=== PATIENT | male | born 1940 | race African-American/Black ===

== ENCOUNTER 2020-06-17 15:09 | Inpatient (IN) | payer MEDICARE, OTHER ==
[~2020-06-17] VITALS: Ht 188 cm; Wt 96.8 kg
[2020-06-17 16:33] LABS: Basophils # (auto) 0 10 ^3/uL (0-0.2); Eosinophils # (auto) 0.1 10 ^3/uL (0-0.8); Monocytes # (auto) 0.6 10 ^3/uL (0-1.3); Monocytes % (auto) 15.7 % (0.0-12.0); Neutrophils # (auto) 2.3 10 ^3/uL (1.6-8.6)
[2020-06-17 16:34] LABS: Basophils % (auto) 0.9 % (0.0-2.0); Eosinophils % (auto) 3.3 % (0.0-7.0); Hematocrit 25.8 % (41.0-53.0); Lymphocytes # (auto) 0.7 10 ^3/uL (0.4-5.4); Lymphocytes % (auto) 18.9 % (10.0-50.0); Mean Corpuscular Hemoglobin 22.7 pg (28.0-32.0); Mean Corpuscular Volume 73.3 fL (80.0-100.0); Neutrophils % (auto) 61.2 % (37.0-80.0); Nucleated Red Blood Cells % 0.1 %; Platelet Count (auto) 166 10^3/uL (140-450); Red Blood Cells 3.53 10^6/uL (4.5-5.90); White Blood Cell 3.8 10^3/uL (4.4-10.8)
[2020-06-17 16:48] LABS: Albumin 2.5 g/dL (3.4-5.0); Calcium 8.5 mg/dL (8.5-10.1); Potassium 4.4 mmol/L (3.5-5.1)
[2020-06-17 16:52] LABS: BUN/Creatinine Ratio 20.6; Bilirubin, Total 0.9 mg/dL (0.2-1.0); Total Protein 6.4 g/dL (6.4-8.2)
[2020-06-17 19:59] LABS: Urine Bacteria NONE SEEN /hpf (None Seen); Urine Blood 2+ /uL (Negative); Urine Specific Gravity 1.018 (1.001-1.035); Urine WBC 2 /hpf (0 - 3)
[2020-06-17] MEDS ORDERED: FUROSEMIDE 40 MG/4 ML VIAL IV ONE (21:45)
[2020-06-17] MEDS ORDERED: NITROGLYCERIN 0.4 MG SL TAB SL PRN (22:30)
[2020-06-17] MEDS ORDERED: ACETAMINOPHEN 325 MG TAB PO PRN (22:30)
[2020-06-17] MEDS ORDERED: ATORVASTATIN 20 MG TAB PO ONE (22:30)
[2020-06-17] MEDS ORDERED: MORPHINE SULFATE 4 MG/ML SYR/VIAL IV PRN (22:30)
[2020-06-17] MEDS ORDERED: SODIUM CHLORIDE 0.9% 1,000 ML IV SCH (22:30)
[2020-06-17] MEDS ORDERED: ONDANSETRON HCL 4 MG/2 ML VIAL IV PRN (22:30)
[2020-06-17] MEDS ORDERED: MORPHINE SULF INJ 2 MG/ML SYRINGE 1ML IV PRN (22:30)
[2020-06-17] MEDS: ENOXAPARIN SOD 100 MG/1 ML SYRINGE SC SCH (22:58)
[2020-06-18 01:10] VITALS: BP 134/81
[2020-06-18 05:00] VITALS: BP 128/80
[2020-06-18 07:52] LABS: Basophils # (auto) 0 10 ^3/uL (0-0.2); Eosinophils # (auto) 0.1 10 ^3/uL (0-0.8); Hemoglobin 8.6 g/dL (13.5-17.5); Monocytes # (auto) 0.7 10 ^3/uL (0-1.3); Neutrophils # (auto) 2.9 10 ^3/uL (1.6-8.6); Platelet Count (auto) 189 10^3/uL (140-450); White Blood Cell 4.8 10^3/uL (4.4-10.8)
[2020-06-18 07:55] LABS: Basophils % (auto) 0.8 % (0.0-2.0); Eosinophils % (auto) 2.5 % (0.0-7.0); Hematocrit 27.8 % (41.0-53.0); Lymphocytes # (auto) 1.1 10 ^3/uL (0.4-5.4); Lymphocytes % (auto) 22.5 % (10.0-50.0); Mean Corpuscular Hemoglobin 22.4 pg (28.0-32.0); Mean Corpuscular Hgb Conc. 30.9 g/dL (32.0-36.0); Mean Corpuscular Volume 72.6 fL (80.0-100.0); Monocytes % (auto) 13.6 % (0.0-12.0); Neutrophils % (auto) 60.6 % (37.0-80.0); Red Blood Cells 3.83 10^6/uL (4.5-5.90); Red Cell Distribution Width 18.4 % (11.8-14.3)
[2020-06-18 08:00] VITALS: BP 138/89
[2020-06-18 08:10] LABS: Calcium 8.6 mg/dL (8.5-10.1)
[2020-06-18 08:18] LABS: BUN/Creatinine Ratio 18.7
[2020-06-18] MEDS: FUROSEMIDE 40 MG/4 ML VIAL IV SCH (09:52)
[2020-06-18] MEDS: ASPirin 81 mg TAB PO SCH (09:53)
[2020-06-18] MEDS: CLOPIDOGREL BISULFATE 75 MG TAB PO SCH (09:53)
[2020-06-18] MEDS: DOCUSATE SOD 100 MG CAP PO SCH (09:54)
[2020-06-18] MEDS: ENOXAPARIN SOD 100 MG/1 ML SYRINGE SC SCH (09:55)
[2020-06-18] MEDS ORDERED: LISINOPRIL 5 MG TAB PO SCH (10:00)
[2020-06-18 13:15] LABS: % Iron Saturation 4.7 % (20-55)
[2020-06-18 16:00] VITALS: BP 119/87
[2020-06-18 20:00] VITALS: BP 124/76
[2020-06-18] MEDS: ATORVASTATIN 20 MG TAB PO SCH (21:03)
[2020-06-19 05:00] VITALS: BP_SYST 124; BP_SYST 136; BP_DIAS 103; BP_DIAS 77
[2020-06-19 06:15] LABS: Basophils # (auto) 0.1 10 ^3/uL (0-0.2); Basophils % (auto) 1.2 % (0.0-2.0); Eosinophils # (auto) 0.1 10 ^3/uL (0-0.8); Eosinophils % (auto) 2.1 % (0.0-7.0); Hematocrit 27.5 % (41.0-53.0); Hemoglobin 8.5 g/dL (13.5-17.5); Lymphocytes # (auto) 0.6 10 ^3/uL (0.4-5.4); Mean Corpuscular Hemoglobin 22.4 pg (28.0-32.0); Mean Corpuscular Volume 72.4 fL (80.0-100.0); Monocytes # (auto) 0.7 10 ^3/uL (0-1.3); Monocytes % (auto) 16.4 % (0.0-12.0); Neutrophils # (auto) 2.9 10 ^3/uL (1.6-8.6); Neutrophils % (auto) 66.3 % (37.0-80.0); Nucleated Red Blood Cells % 0.2 %; Platelet Count (auto) 179 10^3/uL (140-450); Red Cell Distribution Width 18.4 % (11.8-14.3); White Blood Cell 4.4 10^3/uL (4.4-10.8)
[2020-06-19 06:26] LABS: INR 1.21 (0.9-1.15); Partial Thromboplastin Time 30.3 sec (23.0-31.2)
[2020-06-19 06:40] LABS: Potassium 3.9 mmol/L (3.5-5.1)
[2020-06-19 06:50] LABS: BUN/Creatinine Ratio 20.2; Calcium 8.6 mg/dL (8.5-10.1)
[2020-06-19 08:31] VITALS: BP 148/76
[2020-06-19] MEDS: DOCUSATE SOD 100 MG CAP PO SCH (09:24)
[2020-06-19] MEDS: ASPirin 81 mg TAB PO SCH (09:24)
[2020-06-19] MEDS: CLOPIDOGREL BISULFATE 75 MG TAB PO SCH (09:24)
[2020-06-19] MEDS: FUROSEMIDE 40 MG/4 ML VIAL IV SCH (09:24)
[2020-06-19] MEDS: LISINOPRIL 5 MG TAB PO SCH (09:25)
[2020-06-19] MEDS ORDERED: DULO20CA PO (11:06)
[2020-06-19] MEDS ORDERED: FERROUS SULFATE 325 MG TAB PO ONE (12:15)
[2020-06-19 12:52] VITALS: BP 137/89
[2020-06-19 16:34] VITALS: BP 132/79
[2020-06-19] MEDS: FERROUS SULFATE 325 MG TAB PO SCH (18:00)
[2020-06-19] MEDS: ATORVASTATIN 20 MG TAB PO SCH (21:03)
[2020-06-20 05:23] VITALS: BP 127/78
[2020-06-20 08:00] VITALS: BP 128/82
[2020-06-20] MEDS: ASPirin 81 mg TAB PO SCH (10:14)
[2020-06-20] MEDS: FUROSEMIDE 40 MG/4 ML VIAL IV SCH (10:14)
[2020-06-20] MEDS: CLOPIDOGREL BISULFATE 75 MG TAB PO SCH (10:14)
[2020-06-20] MEDS: DOCUSATE SOD 100 MG CAP PO SCH (10:14)
[2020-06-20] MEDS: FERROUS SULFATE 325 MG TAB PO SCH ×2 (10:14→18:00)
[2020-06-20] MEDS: LISINOPRIL 5 MG TAB PO SCH (10:15)
[2020-06-20 16:16] VITALS: BP 131/53
[2020-06-20 17:38] VITALS: BP 131/53
== END 2020-06-20 18:58 | disposition home or self-care (01) | DRG 280 ==
LOC: ER 15:11 → TELE 15:12 → TELE-EAST 23:42
PROVIDERS: ADMIT Hospitalist; ATTEND Internal Medicine
DX: I21.4 Non-ST elevation (NSTEMI) myocardial infarction (principal); I50.43 Acute on chronic combined systolic (congestive) and diastolic (congestive) heart failure; I48.20 Chronic atrial fibrillation, unspecified; I11.0 Hypertensive heart disease with heart failure; N50.819 Testicular pain, unspecified; R09.02 Hypoxemia; R31.9 Hematuria, unspecified; N50.82 Scrotal pain; D50.9 Iron deficiency anemia, unspecified; E66.9 Obesity, unspecified; I25.10 Atherosclerotic heart disease of native coronary artery without angina pectoris; N50.89 Other specified disorders of the male genital organs; I08.1 Rheumatic disorders of both mitral and tricuspid valves; Z20.822 Contact with and (suspected) exposure to COVID-19; Z91.14 Patient's other noncompliance with medication regimen; Z82.3 Family history of stroke; Z95.0 Presence of cardiac pacemaker; Z95.1 Presence of aortocoronary bypass graft; Z79.899 Other long term (current) drug therapy; Z79.891 Long term (current) use of opiate analgesic; Z79.01 Long term (current) use of anticoagulants; Z84.1 Family history of disorders of kidney and ureter; Z84.89 Family history of other specified conditions
CPT/HCPCS: 36415; 71045; 76870; 80048; 80053; 80061; 81001; 83540; 83550; 83880; 84484; 85025; 85610; 85730; 86850; 86900; 86901; 87426; 93005; 93306; 96361; 96374; G0378

== ENCOUNTER 2020-06-22 17:40 | Emergency (ER) | payer MEDICARE, OTHER ==
[~2020-06-22] VITALS: Ht 188 cm; Wt 99.8 kg
[~2020-06-22 17:40] MED LIST: DULO20CA PO
[2020-06-22 23:00] VITALS: BP 127/72
[2020-06-22 23:49] LABS: Basophils # (auto) 0 10 ^3/uL (0-0.2); Basophils % (auto) 0.9 % (0.0-2.0); Eosinophils # (auto) 0.2 10 ^3/uL (0-0.8); Hemoglobin 8.1 g/dL (13.5-17.5); Red Cell Distribution Width 18.4 % (11.8-14.3); White Blood Cell 4.9 10^3/uL (4.4-10.8)
[2020-06-22 23:51] LABS: Albumin 2.6 g/dL (3.4-5.0); Calcium 8.2 mg/dL (8.5-10.1); Eosinophils % (auto) 3.3 % (0.0-7.0); Hematocrit 26.6 % (41.0-53.0); Lymphocytes # (auto) 0.6 10 ^3/uL (0.4-5.4); Lymphocytes % (auto) 13.1 % (10.0-50.0); Mean Corpuscular Hemoglobin 22.5 pg (28.0-32.0); Mean Corpuscular Hgb Conc. 30.5 g/dL (32.0-36.0); Mean Corpuscular Volume 73.6 fL (80.0-100.0); Monocytes # (auto) 0.7 10 ^3/uL (0-1.3); Neutrophils # (auto) 3.3 10 ^3/uL (1.6-8.6); Neutrophils % (auto) 68.7 % (37.0-80.0); Nucleated Red Blood Cells % 0.1 %; Potassium 4.3 mmol/L (3.5-5.1); Red Blood Cells 3.61 10^6/uL (4.5-5.90)
[2020-06-22 23:54] LABS: Bilirubin, Total 0.8 mg/dL (0.2-1.0); Total Protein 6.2 g/dL (6.4-8.2)
[2020-06-23 00:23] LABS: INR 1.1 (0.9-1.15); Partial Thromboplastin Time 26.3 sec (23.0-31.2)
== END 2020-06-22 22:59 | disposition home or self-care (01) ==
LOC: ER 17:40
DX: S00.03XA Contusion of scalp, initial encounter (principal); J18.9 Pneumonia, unspecified organism; I11.0 Hypertensive heart disease with heart failure; I50.9 Heart failure, unspecified; Z20.822 Contact with and (suspected) exposure to COVID-19; W18.39XA Other fall on same level, initial encounter; Y93.89 Activity, other specified; Y92.89 Other specified places as the place of occurrence of the external cause; Y99.8 Other external cause status
CPT/HCPCS: 36415; 70450; 71250; 73200; 80053; 83880; 84484; 85025; 85610; 85730; 93005

== ENCOUNTER 2020-09-07 10:48 | Inpatient (IN) | payer OTHER, MEDICARE ==
[~2020-09-07] VITALS: Ht 188 cm; Wt 98.8 kg
[2020-09-07] MEDS ORDERED: FUROSEMIDE 40 MG/4 ML VIAL IV ONE (11:30)
[2020-09-07 11:56] LABS: Eosinophils # (auto) 0.1 10 ^3/uL (0-0.8); Hemoglobin 9.5 g/dL (13.5-17.5)
[2020-09-07 11:58] LABS: Basophils # (auto) 0.1 10 ^3/uL (0-0.2); Basophils % (auto) 2.8 % (0.0-2.0); Hematocrit 30.9 % (41.0-53.0); Lymphocytes # (auto) 0.5 10 ^3/uL (0.4-5.4); Lymphocytes % (auto) 11.5 % (10.0-50.0); Mean Corpuscular Hemoglobin 23.9 pg (28.0-32.0); Mean Corpuscular Hgb Conc. 30.8 g/dL (32.0-36.0); Mean Corpuscular Volume 77.8 fL (80.0-100.0); Monocytes # (auto) 0.5 10 ^3/uL (0-1.3); Monocytes % (auto) 12.1 % (0.0-12.0); Neutrophils # (auto) 2.8 10 ^3/uL (1.6-8.6); Neutrophils % (auto) 70.6 % (37.0-80.0); Nucleated Red Blood Cells % 0.3 %; Platelet Count (auto) 214 10^3/uL (140-450); Red Blood Cells 3.97 10^6/uL (4.5-5.90); Red Cell Distribution Width 23.6 % (11.8-14.3)
[2020-09-07 12:16] LABS: INR 1.09 (0.9-1.15); Partial Thromboplastin Time 26.5 sec (23.0-31.2); Potassium 4.2 mmol/L (3.5-5.1)
[2020-09-07 12:26] LABS: Albumin 2.2 g/dL (3.4-5.0); BUN/Creatinine Ratio 16.5; Bilirubin, Total 0.7 mg/dL (0.2-1.0); Magnesium 2.5 mg/dL (1.6-2.6); Total Protein 5.4 g/dL (6.4-8.2)
[2020-09-07 12:33] LABS: Urine WBC None Seen /hpf (0 - 3)
[2020-09-07 12:46] LABS: Urine Bacteria NONE SEEN /hpf (None Seen); Urine Blood Negative /uL (Negative); Urine Specific Gravity 1.011 (1.001-1.035)
[2020-09-07] MEDS ORDERED: ACETAMINOPHEN 500 MG TAB PO PRN (15:00)
[2020-09-07] MEDS ORDERED: NITROGLYCERIN 0.4 MG SL TAB SL PRN (15:00)
[2020-09-07] MEDS ORDERED: ONDANSETRON HCL 4 MG/2 ML VIAL IV PRN (15:00)
[2020-09-07] MEDS ORDERED: DOCUSATE CALCIUM 240 MG CAP PO PRN (15:00)
[2020-09-07] MEDS ORDERED: ALBUTEROL SULF 2.5 MG/0.5ML(0.5%) NEB SOLN NEB PRN (15:00)
[2020-09-07] MEDS ORDERED: hydrALAZINE HCL 20 MG/ML VL IV PRN (15:00)
[2020-09-07] MEDS ORDERED: MORPHINE SULF INJ 2 MG/ML SYRINGE 1ML IV PRN ×2 (15:00)
[2020-09-07 15:21] VITALS: BP 118/57
[2020-09-07 16:09] LABS: Hemoglobin 9.8 g/dL (13.5-17.5)
[2020-09-07 16:12] LABS: Hematocrit 32.3 % (41.0-53.0)
[2020-09-07] MEDS ORDERED: DOBUTamine 1000MCG/ML 250 ML IV SCH (18:45)
[2020-09-07] MEDS: DOBUTamine 1000MCG/ML 250 ML IV SCH (21:30)
[2020-09-07 21:39] VITALS: BP 116/65
[2020-09-07 21:58] LABS: Hematocrit 30.4 % (41.0-53.0); Hemoglobin 9.5 g/dL (13.5-17.5)
[2020-09-07] MEDS: LORazepam 0.5 MG TAB PO PRN (23:10)
[2020-09-08 00:03] VITALS: BP 116/65
[2020-09-08 04:07] LABS: Hematocrit 28.6 % (41.0-53.0); Hemoglobin 8.9 g/dL (13.5-17.5)
[2020-09-08 05:00] VITALS: BP 123/70
[2020-09-08 06:18] LABS: Basophils # (auto) 0 10 ^3/uL (0-0.2); Eosinophils # (auto) 0.2 10 ^3/uL (0-0.8); Hematocrit 27.6 % (41.0-53.0); Hemoglobin 8.6 g/dL (13.5-17.5); Monocytes # (auto) 0.8 10 ^3/uL (0-1.3); Neutrophils # (auto) 2.8 10 ^3/uL (1.6-8.6); Platelet Count (auto) 187 10^3/uL (140-450); White Blood Cell 4.6 10^3/uL (4.4-10.8)
[2020-09-08 06:20] LABS: Basophils % (auto) 0.5 % (0.0-2.0); Eosinophils % (auto) 4.2 % (0.0-7.0); Lymphocytes # (auto) 0.8 10 ^3/uL (0.4-5.4); Lymphocytes % (auto) 16.7 % (10.0-50.0); Mean Corpuscular Hemoglobin 24.1 pg (28.0-32.0); Mean Corpuscular Hgb Conc. 31.1 g/dL (32.0-36.0); Mean Corpuscular Volume 77.3 fL (80.0-100.0); Monocytes % (auto) 16.9 % (0.0-12.0); Neutrophils % (auto) 61.7 % (37.0-80.0); Nucleated Red Blood Cells % 0.1 %; Red Blood Cells 3.57 10^6/uL (4.5-5.90)
[2020-09-08 06:34] LABS: Red Cell Distribution Width 23.7 % (11.8-14.3)
[2020-09-08 06:41] LABS: Calcium 7.6 mg/dL (8.5-10.1); Potassium 4.1 mmol/L (3.5-5.1)
[2020-09-08 06:47] LABS: BUN/Creatinine Ratio 17.4; Bilirubin, Total 0.5 mg/dL (0.2-1.0)
[2020-09-08 07:51] VITALS: BP 108/70
[2020-09-08] MEDS ORDERED: DOXYCYCLINE 100 MG TAB/CAP PO ONE (10:15)
[2020-09-08 10:17] LABS: Hematocrit 28.7 % (41.0-53.0)
[2020-09-08] MEDS: DIGOXIN 0.125 MG TAB PO SCH (10:34)
[2020-09-08] MEDS: DULoxetine HCL 30 MG CAP PO SCH (10:34)
[2020-09-08] MEDS: PANTOPRAZOLE 40 MG TAB PO SCH (10:34)
[2020-09-08] MEDS: ENOXAPARIN SOD 40 MG/0.4 ML SYRINGE SC SCH (10:35)
[2020-09-08] MEDS: AMIODARONE HCL 200 MG TAB PO SCH (10:35)
[2020-09-08] MEDS ORDERED: FUROSEMIDE 40 MG TAB PO ONE (11:45)
[2020-09-08] MEDS: guaiFENesin-CODEINE Liq 5 ML UD PO SCH ×3 (12:05→21:37)
[2020-09-08 12:30] VITALS: BP 124/77
[2020-09-08] MEDS: Ensure HIGH Protein Chocolate 8oz Bottle PO SCH ×2 (13:30→18:54)
[2020-09-08] MEDS: DOBUTamine 1000MCG/ML 250 ML IV SCH (14:15)
[2020-09-08 15:15] LABS: Hematocrit 28.6 % (41.0-53.0); Hemoglobin 8.9 g/dL (13.5-17.5)
[2020-09-08 16:47] VITALS: BP 118/53
[2020-09-08 21:14] VITALS: BP 115/74
[2020-09-08] MEDS: DOXYCYCLINE 100 MG TAB/CAP PO SCH (21:37)
[2020-09-08] MEDS: LORazepam 0.5 MG TAB PO PRN (21:38)
[2020-09-08 21:47] LABS: Hematocrit 28.9 % (41.0-53.0)
[2020-09-09] MEDS: DOBUTamine 1000MCG/ML 250 ML IV SCH ×2 (04:06→13:44)
[2020-09-09 04:50] VITALS: BP 110/72
[2020-09-09] MEDS: guaiFENesin-CODEINE Liq 5 ML UD PO SCH ×2 (06:24→12:25)
[2020-09-09 06:26] LABS: Basophils # (auto) 0 10 ^3/uL (0-0.2); Eosinophils # (auto) 0.2 10 ^3/uL (0-0.8); Monocytes # (auto) 0.7 10 ^3/uL (0-1.3); Neutrophils # (auto) 3.3 10 ^3/uL (1.6-8.6); Nucleated Red Blood Cells % 0.1 %
[2020-09-09 06:34] LABS: Basophils % (auto) 0.4 % (0.0-2.0); Hematocrit 26.8 % (41.0-53.0); Hemoglobin 8.4 g/dL (13.5-17.5); Lymphocytes # (auto) 0.7 10 ^3/uL (0.4-5.4); Lymphocytes % (auto) 13.7 % (10.0-50.0); Mean Corpuscular Hemoglobin 24.3 pg (28.0-32.0); Mean Corpuscular Hgb Conc. 31.5 g/dL (32.0-36.0); Mean Corpuscular Volume 77.1 fL (80.0-100.0); Monocytes % (auto) 13.8 % (0.0-12.0); Neutrophils % (auto) 68.1 % (37.0-80.0); Platelet Count (auto) 181 10^3/uL (140-450); Red Blood Cells 3.48 10^6/uL (4.5-5.90); White Blood Cell 4.8 10^3/uL (4.4-10.8)
[2020-09-09 06:37] LABS: Red Cell Distribution Width 22.8 % (11.8-14.3)
[2020-09-09 06:54] LABS: Potassium 4.4 mmol/L (3.5-5.1)
[2020-09-09 07:09] LABS: Albumin 2.1 g/dL (3.4-5.0); BUN/Creatinine Ratio 18.1; Bilirubin, Total 0.6 mg/dL (0.2-1.0); Calcium 7.6 mg/dL (8.5-10.1); Total Protein 5.2 g/dL (6.4-8.2)
[2020-09-09 09:00] VITALS: BP 116/65
[2020-09-09] MEDS: Ensure HIGH Protein Chocolate 8oz Bottle PO SCH ×2 (09:09→12:25)
[2020-09-09] MEDS: ENOXAPARIN SOD 40 MG/0.4 ML SYRINGE SC SCH (09:09)
[2020-09-09] MEDS: DIGOXIN 0.125 MG TAB PO SCH (09:10)
[2020-09-09] MEDS: PANTOPRAZOLE 40 MG TAB PO SCH (09:10)
[2020-09-09] MEDS: DULoxetine HCL 30 MG CAP PO SCH (09:11)
[2020-09-09] MEDS: DOXYCYCLINE 100 MG TAB/CAP PO SCH (09:11)
[2020-09-09] MEDS: AMIODARONE HCL 200 MG TAB PO SCH (09:11)
[2020-09-09] MEDS ORDERED: FUROSEMIDE 40 MG TAB PO SCH (10:00)
[2020-09-09 13:17] VITALS: BP 119/70
[2020-09-09 13:44] VITALS: BP 119/70
== END 2020-09-09 15:50 | disposition left against medical advice (07) | DRG 280 ==
LOC: EDBD 10:48 → ER 10:48 → TELE 14:59 → TELE-CENTR 20:50
PROVIDERS: ADMIT Family Medicine; ATTEND Family Medicine
DX: I13.0 Hypertensive heart and chronic kidney disease with heart failure and stage 1 through stage 4 chronic kidney disease, or unspecified chronic kidney disease (principal); I21.A1 Myocardial infarction type 2; I50.43 Acute on chronic combined systolic (congestive) and diastolic (congestive) heart failure; J96.01 Acute respiratory failure with hypoxia; J15.6 Pneumonia due to other Gram-negative bacteria; D68.59 Other primary thrombophilia; E44.0 Moderate protein-calorie malnutrition; E87.0 Hyperosmolality and hypernatremia; I48.20 Chronic atrial fibrillation, unspecified; Z53.29 Procedure and treatment not carried out because of patient's decision for other reasons; Z20.822 Contact with and (suspected) exposure to COVID-19; E78.5 Hyperlipidemia, unspecified; E83.51 Hypocalcemia; F43.10 Post-traumatic stress disorder, unspecified; I05.9 Rheumatic mitral valve disease, unspecified; I25.10 Atherosclerotic heart disease of native coronary artery without angina pectoris; I25.5 Ischemic cardiomyopathy; I27.21 Secondary pulmonary arterial hypertension; I49.5 Sick sinus syndrome; K80.20 Calculus of gallbladder without cholecystitis without obstruction; M10.9 Gout, unspecified; N18.2 Chronic kidney disease, stage 2 (mild); N50.89 Other specified disorders of the male genital organs; Z82.3 Family history of stroke; I25.2 Old myocardial infarction; Z83.3 Family history of diabetes mellitus; Z95.0 Presence of cardiac pacemaker; Z95.1 Presence of aortocoronary bypass graft; Z79.899 Other long term (current) drug therapy
CPT/HCPCS: 36415; 71045; 71250; 76870; 80053; 81001; 83735; 83880; 84443; 84484; 85014; 85018; 85025; 85610; 85730; 87070; 87205; 87426; 93005; 94660; 96365; 96375; 99291; G0378

== ENCOUNTER 2021-04-19 16:38 | Inpatient (IN) | payer MEDICARE ==
[~2021-04-19] VITALS: Ht 188 cm; Wt 97.0 kg
[2021-04-19] MEDS ORDERED: FUROSEMIDE 40 MG/4 ML VIAL IV ONE (17:00)
[2021-04-19 19:51] LABS: Basophils # (auto) 0 10 ^3/uL (0-0.2); Basophils % (auto) 0.8 % (0.0-2.0); Eosinophils # (auto) 0.1 10 ^3/uL (0-0.8); Hemoglobin 8.1 g/dL (13.5-17.5); Lymphocytes # (auto) 0.5 10 ^3/uL (0.4-5.4); Neutrophils # (auto) 3.8 10 ^3/uL (1.6-8.6)
[2021-04-19 19:53] LABS: Eosinophils % (auto) 2.7 % (0.0-7.0); Hematocrit 27.5 % (41.0-53.0); Lymphocytes % (auto) 8.9 % (10.0-50.0); Mean Corpuscular Hemoglobin 19.3 pg (28.0-32.0); Mean Corpuscular Hgb Conc. 29.7 g/dL (32.0-36.0); Mean Corpuscular Volume 65.2 fL (80.0-100.0); Monocytes # (auto) 0.7 10 ^3/uL (0-1.3); Neutrophils % (auto) 74.6 % (37.0-80.0); Nucleated Red Blood Cells % 0.2 %; Red Blood Cells 4.22 10^6/uL (4.5-5.90); Red Cell Distribution Width 24.2 % (11.8-14.3); White Blood Cell 5.1 10^3/uL (4.4-10.8)
[2021-04-19 20:06] LABS: INR 1.13 (0.9-1.15)
[2021-04-19 20:15] LABS: Albumin 2.2 g/dL (3.4-5.0); Potassium 4.4 mmol/L (3.5-5.1)
[2021-04-19 20:23] LABS: Bilirubin, Total 0.7 mg/dL (0.2-1.0)
[2021-04-19] MEDS ORDERED: ASPirin 325 MG TAB PO ONE (22:00)
[2021-04-19] MEDS ORDERED: ACETAMINOPHEN 325 MG TAB PO PRN (22:15)
[2021-04-19] MEDS ORDERED: DOCUSATE SOD 100 MG CAP PO PRN (22:15)
[2021-04-19] MEDS ORDERED: ONDANSETRON HCL 4 MG/2 ML VIAL IV PRN (22:15)
[2021-04-19 22:43] LABS: Urine Bacteria NONE SEEN /hpf (None Seen); Urine Blood Negative /uL (Negative); Urine Specific Gravity 1.016 (1.001-1.035); Urine WBC 14 /hpf (0 - 3)
[2021-04-19] MEDS ORDERED: NITROGLYCERIN 0.4 MG SL TAB SL PRN (23:45)
[2021-04-19] MEDS ORDERED: MORPHINE SULFATE INJECTION 2 MG/ML SYRG IV PRN (23:45)
[2021-04-20 00:40] VITALS: BP 112/72
[2021-04-20] MEDS: HYDROcodone-ACET 5/325MG TAB PO PRN (01:53)
[2021-04-20] MEDS: SODIUM CHLOR 0.9% PF (SALINE LOCK) 10ML VIAL/SYR IV SCH ×3 (05:11→21:48)
[2021-04-20 05:13] VITALS: BP 100/61
[2021-04-20 05:19] LABS: Eosinophils # (auto) 0.1 10 ^3/uL (0-0.8)
[2021-04-20 05:21] LABS: Basophils # (auto) 0 10 ^3/uL (0-0.2); Basophils % (auto) 0.4 % (0.0-2.0); Eosinophils % (auto) 2.9 % (0.0-7.0); Hematocrit 24.7 % (41.0-53.0); Hemoglobin 7.2 g/dL (13.5-17.5); Lymphocytes # (auto) 0.4 10 ^3/uL (0.4-5.4); Mean Corpuscular Hemoglobin 19.2 pg (28.0-32.0); Mean Corpuscular Hgb Conc. 29.2 g/dL (32.0-36.0); Mean Corpuscular Volume 65.8 fL (80.0-100.0); Monocytes # (auto) 0.6 10 ^3/uL (0-1.3); Monocytes % (auto) 12.4 % (0.0-12.0); Neutrophils # (auto) 3.8 10 ^3/uL (1.6-8.6); Neutrophils % (auto) 76.3 % (37.0-80.0); Nucleated Red Blood Cells % 0.2 %; Red Blood Cells 3.76 10^6/uL (4.5-5.90)
[2021-04-20 05:32] LABS: Cholesterol 122 mg/dL (< 200)
[2021-04-20 05:36] LABS: HDL Cholesterol 34 mg/dL (40-59); LDL Cholesterol 75 mg/dL (< 100); Triglycerides 60 mg/dL (< 150)
[2021-04-20 05:47] LABS: Red Cell Distribution Width 23.9 % (11.8-14.3)
[2021-04-20 09:00] VITALS: BP 99/66
[2021-04-20] MEDS: ASPirin 81 mg TAB PO SCH (09:51)
[2021-04-20] MEDS ORDERED: CARVEDILOL 12.5 MG TAB PO SCH (10:00)
[2021-04-20] MEDS ORDERED: FUROSEMIDE 40 MG/4 ML VIAL IV SCH (10:00)
[2021-04-20 13:00] VITALS: BP 101/64
[2021-04-20 17:00] VITALS: BP 101/61
[2021-04-20] MEDS: FUROSEMIDE 40 MG/4 ML VIAL IV SCH (18:11)
[2021-04-20] MEDS: CARVEDILOL 3.125 MG TAB PO SCH (21:23)
[2021-04-20] MEDS: ENOXAPARIN SOD 100 MG/1 ML SYRINGE SC SCH (21:24)
[2021-04-20] MEDS: SACUBITRIL-VALSARTAN 24mg/26mg TAB PO SCH (21:24)
[2021-04-20] MEDS: ATORVASTATIN 20 MG TAB PO SCH (21:24)
[2021-04-20 22:00] VITALS: BP 100/58
[2021-04-21] MEDS: ALBUTEROL SULF 2.5 MG/0.5ML(0.5%) NEB SOLN NEB PRN ×3 (01:46→22:39)
[2021-04-21] MEDS: HYDROcodone-ACET 5/325MG TAB PO PRN ×2 (03:41→11:52)
[2021-04-21 05:00] VITALS: BP 96/46
[2021-04-21 05:48] LABS: Basophils # (auto) 0 10 ^3/uL (0-0.2); Lymphocytes # (auto) 0.5 10 ^3/uL (0.4-5.4); Monocytes # (auto) 0.6 10 ^3/uL (0-1.3); Neutrophils # (auto) 3.5 10 ^3/uL (1.6-8.6); Nucleated Red Blood Cells % 0.1 %; White Blood Cell 4.9 10^3/uL (4.4-10.8)
[2021-04-21 05:52] LABS: Basophils % (auto) 0.7 % (0.0-2.0); Eosinophils # (auto) 0.3 10 ^3/uL (0-0.8); Eosinophils % (auto) 5.2 % (0.0-7.0); Hematocrit 24.3 % (41.0-53.0); Hemoglobin 7.2 g/dL (13.5-17.5); Lymphocytes % (auto) 9.5 % (10.0-50.0); Mean Corpuscular Hemoglobin 19.5 pg (28.0-32.0); Mean Corpuscular Hgb Conc. 29.8 g/dL (32.0-36.0); Mean Corpuscular Volume 65.5 fL (80.0-100.0); Monocytes % (auto) 11.7 % (0.0-12.0); Neutrophils % (auto) 72.9 % (37.0-80.0); Red Blood Cells 3.71 10^6/uL (4.5-5.90)
[2021-04-21 06:04] LABS: Red Cell Distribution Width 23.5 % (11.8-14.3)
[2021-04-21 06:07] LABS: Calcium 7.3 mg/dL (8.5-10.1); Magnesium 2.2 mg/dL (1.6-2.6); Potassium 4.1 mmol/L (3.5-5.1)
[2021-04-21 06:11] LABS: BUN/Creatinine Ratio 24.1
[2021-04-21] MEDS: FUROSEMIDE 40 MG/4 ML VIAL IV SCH ×2 (06:35→18:01)
[2021-04-21] MEDS: SODIUM CHLOR 0.9% PF (SALINE LOCK) 10ML VIAL/SYR IV SCH ×3 (06:36→22:15)
[2021-04-21 08:15] VITALS: BP 90/51
[2021-04-21 09:00] VITALS: BP 90/51
[2021-04-21] MEDS: CARVEDILOL 3.125 MG TAB PO SCH ×2 (10:00→22:00)
[2021-04-21] MEDS: DAPAGLIFLOZIN 5 MG TAB PO SCH (10:12)
[2021-04-21] MEDS: SACUBITRIL-VALSARTAN 24mg/26mg TAB PO SCH ×2 (10:12→22:18)
[2021-04-21] MEDS: ASPirin 81 mg TAB PO SCH (10:12)
[2021-04-21] MEDS: ENOXAPARIN SOD 100 MG/1 ML SYRINGE SC SCH ×2 (10:13→22:18)
[2021-04-21 13:00] VITALS: BP 98/53
[2021-04-21 17:00] VITALS: BP 91/64
[2021-04-21 22:00] VITALS: BP 100/54
[2021-04-21] MEDS: ATORVASTATIN 20 MG TAB PO SCH (22:18)
[2021-04-22 00:31] LABS: INR 1.11 (0.9-1.15); Partial Thromboplastin Time 26.7 sec (23.6-33.0)
[2021-04-22 05:00] VITALS: BP 104/69
[2021-04-22] MEDS: SODIUM CHLOR 0.9% PF (SALINE LOCK) 10ML VIAL/SYR IV SCH ×3 (05:47→23:16)
[2021-04-22] MEDS: FUROSEMIDE 40 MG/4 ML VIAL IV SCH ×2 (05:47→18:03)
[2021-04-22 06:11] LABS: Basophils # (auto) 0 10 ^3/uL (0-0.2); Lymphocytes # (auto) 0.5 10 ^3/uL (0.4-5.4); White Blood Cell 4.6 10^3/uL (4.4-10.8)
[2021-04-22 06:13] LABS: Eosinophils # (auto) 0.3 10 ^3/uL (0-0.8); Eosinophils % (auto) 5.7 % (0.0-7.0); Hematocrit 27.7 % (41.0-53.0); Hemoglobin 8.2 g/dL (13.5-17.5); Lymphocytes % (auto) 10.6 % (10.0-50.0); Mean Corpuscular Hemoglobin 19.5 pg (28.0-32.0); Mean Corpuscular Hgb Conc. 29.7 g/dL (32.0-36.0); Mean Corpuscular Volume 65.4 fL (80.0-100.0); Monocytes # (auto) 0.6 10 ^3/uL (0-1.3); Monocytes % (auto) 12.9 % (0.0-12.0); Neutrophils # (auto) 3.2 10 ^3/uL (1.6-8.6); Neutrophils % (auto) 69.8 % (37.0-80.0); Nucleated Red Blood Cells % 0.1 %; Red Blood Cells 4.23 10^6/uL (4.5-5.90)
[2021-04-22 06:16] LABS: Red Cell Distribution Width 23.7 % (11.8-14.3)
[2021-04-22 06:20] LABS: INR 1.1 (0.9-1.15)
[2021-04-22 06:21] LABS: Magnesium 2.9 mg/dL (1.6-2.6); Potassium 4.3 mmol/L (3.5-5.1)
[2021-04-22 06:24] LABS: BUN/Creatinine Ratio 22.3; Bilirubin, Total 0.6 mg/dL (0.2-1.0); Total Protein 5.7 g/dL (6.4-8.2)
[2021-04-22] MEDS: ENOXAPARIN SOD 100 MG/1 ML SYRINGE SC SCH ×2 (08:32→22:00)
[2021-04-22 08:40] VITALS: BP 100/63
[2021-04-22] MEDS: ASPirin 81 mg TAB PO SCH (09:11)
[2021-04-22] MEDS: SACUBITRIL-VALSARTAN 24mg/26mg TAB PO SCH ×2 (09:11→22:07)
[2021-04-22] MEDS: CARVEDILOL 3.125 MG TAB PO SCH ×2 (09:11→22:07)
[2021-04-22] MEDS: DAPAGLIFLOZIN 5 MG TAB PO SCH (09:11)
[2021-04-22] MEDS ORDERED: LIDOCAINE 2%HCL (LOCAL ANESTH.) INJ 20ML MDV ONE (09:41)
[2021-04-22] MEDS ORDERED: MIDAZOLAM HCL 2MG/2ML 2ml VIAL (1mg/ml) ONE (09:58)
[2021-04-22] MEDS ORDERED: fentaNYL CITRATE 100 MCG/2 ML VL ONE (09:58)
[2021-04-22] MEDS ORDERED: SODIUM CHL 0.9% 0 ML ONE (09:58)
[2021-04-22] MEDS ORDERED: ANGIOMAX 250 MG VIAL IV ONE (09:58)
[2021-04-22] MEDS ORDERED: diphenhdrAMINE HCL 50 MG/1 ML VL ONE (10:23)
[2021-04-22] MEDS ORDERED: IODIXANOL 320MG/ML 100ML BTL IV ONE (10:38)
[2021-04-22] MEDS: HYDROcodone-ACET 5/325MG TAB PO PRN (12:48)
[2021-04-22 13:00] VITALS: BP 115/68
[2021-04-22] MEDS ORDERED: METO25TA93 PO (14:36)
[2021-04-22] MEDS ORDERED: DICL1GEL50 TD (14:36)
[2021-04-22] MEDS ORDERED: UREA1CRE TOP (14:36)
[2021-04-22] MEDS ORDERED: TRIA0.5C TOP (14:36)
[2021-04-22] MEDS ORDERED: ATOR40TA52 PO (14:36)
[2021-04-22] MEDS ORDERED: SPIR25TA8 PO (14:36)
[2021-04-22] MEDS ORDERED: ACET250T3 PO (14:36)
[2021-04-22] MEDS ORDERED: LISI2.5T47 PO (14:36)
[2021-04-22] MEDS ORDERED: CHOL20007 PO (14:36)
[2021-04-22] MEDS ORDERED: MULTTAB75 PO (14:36)
[2021-04-22] MEDS ORDERED: ASPI-543 PO (14:36)
[2021-04-22] MEDS ORDERED: APIX5TAB PO (14:36)
[2021-04-22] MEDS ORDERED: TORS20TA20 PO (14:36)
[2021-04-22] MEDS ORDERED: DULO20CA PO (14:36)
[2021-04-22] MEDS ORDERED: ACET-1158 PO (14:40)
[2021-04-22] MEDS ORDERED: CHOL100055 PO (16:02)
[2021-04-22 17:00] VITALS: BP 102/69
[2021-04-22] MEDS: ATORVASTATIN 20 MG TAB PO SCH (22:07)
[2021-04-22 23:19] VITALS: BP 116/90
[2021-04-23] VITALS (7 sets, daily range): BP systolic 96–123; BP diastolic 58–69
[2021-04-23] MEDS: HYDROcodone-ACET 5/325MG TAB PO PRN (00:02)
[2021-04-23] MEDS: SODIUM CHLOR 0.9% PF (SALINE LOCK) 10ML VIAL/SYR IV SCH ×2 (06:08→14:00)
[2021-04-23] MEDS: FUROSEMIDE 40 MG/4 ML VIAL IV SCH ×2 (06:18→17:14)
[2021-04-23 07:04] LABS: Calcium 7.9 mg/dL (8.5-10.1); Magnesium 3.3 mg/dL (1.6-2.6); Potassium 4.4 mmol/L (3.5-5.1)
[2021-04-23] MEDS: SACUBITRIL-VALSARTAN 24mg/26mg TAB PO SCH (09:58)
[2021-04-23] MEDS: DAPAGLIFLOZIN 5 MG TAB PO SCH (09:58)
[2021-04-23] MEDS: ASPirin 81 mg TAB PO SCH (09:58)
[2021-04-23] MEDS: CARVEDILOL 3.125 MG TAB PO SCH (09:59)
[2021-04-23] MEDS: ENOXAPARIN SOD 100 MG/1 ML SYRINGE SC SCH (09:59)
[2021-04-23] MEDS ORDERED: TEMAZEPAM 15 MG CAP PO PRN (12:15)
== END 2021-04-23 21:00 | disposition home or self-care (01) | DRG 280 ==
LOC: EDBD 16:38 → ER 16:38 → TELE 23:34 → TELE-CENTR 23:49
PROVIDERS: ADMIT Nurse Practitioner Family; ATTEND Internal Medicine Geriatric Medicine
PROC: B211YZZ Fluoroscopy of Multiple Coronary Arteries using Other Contrast (ICD-10-PCS; principal; 2021-04-22)
PROC: B215YZZ Fluoroscopy of Left Heart using Other Contrast (ICD-10-PCS; 2021-04-22)
PROC: 4A023N8 Measurement of Cardiac Sampling and Pressure, Bilateral, Percutaneous Approach (ICD-10-PCS; 2021-04-22)
PROC: B212YZZ Fluoroscopy of Single Coronary Artery Bypass Graft using Other Contrast (ICD-10-PCS; 2021-04-22)
PROC: B218YZZ Fluoroscopy of Left Internal Mammary Bypass Graft using Other Contrast (ICD-10-PCS; 2021-04-22)
DX: I21.4 Non-ST elevation (NSTEMI) myocardial infarction (principal); I50.43 Acute on chronic combined systolic (congestive) and diastolic (congestive) heart failure; E43 Unspecified severe protein-calorie malnutrition; I13.0 Hypertensive heart and chronic kidney disease with heart failure and stage 1 through stage 4 chronic kidney disease, or unspecified chronic kidney disease; I48.20 Chronic atrial fibrillation, unspecified; E88.09 Other disorders of plasma-protein metabolism, not elsewhere classified; Z20.822 Contact with and (suspected) exposure to COVID-19; D64.9 Anemia, unspecified; I25.5 Ischemic cardiomyopathy; E11.22 Type 2 diabetes mellitus with diabetic chronic kidney disease; E78.5 Hyperlipidemia, unspecified; I08.0 Rheumatic disorders of both mitral and aortic valves; R09.02 Hypoxemia; I25.10 Atherosclerotic heart disease of native coronary artery without angina pectoris; N18.9 Chronic kidney disease, unspecified; Z83.3 Family history of diabetes mellitus; Z82.3 Family history of stroke; Z95.1 Presence of aortocoronary bypass graft; Z95.810 Presence of automatic (implantable) cardiac defibrillator; Z68.27 Body mass index [BMI] 27.0-27.9, adult
CPT/HCPCS: 36415; 36600; 71045; 80048; 80053; 80061; 81001; 82805; 83735; 83880; 84484; 85025; 85610; 85730; 86850; 86900; 86901; 87426; 93005; 93306; 93460; 94003; 94640; 96374; 99152; 99153; 99291; C1751; G0378; J2250; Q9967